=== PATIENT | female | born 1950 | race Caucasian/White ===

== ENCOUNTER 2019-06-19 09:06 | Day surgery (SDC) | payer MEDICARE, MEDICAID ==
[2019-06-18 14:41] LABS: BASOPHILS # (AUTO) 0.1 X10'3 (0-0.2); BASOPHILS % (AUTO) 0.9 % (0-1); EOSINOPHILS # (AUTO) 0.1 X10'3 (0-0.9); EOSINOPHILS % (AUTO) 1.1 % (0-6); HEMOGLOBIN 13.9 g/dl (12.0-16.0); LYMPHOCYTES # (AUTO) 1.5 X10'3 (1.1-4.8); LYMPHOCYTES % (AUTO) 25.9 % (21-51); MEAN CORPUSCULAR HEMOGLOBIN 32.3 PG (27.0-31.0); MEAN PLATELET VOLUME 6.6 FL (7.4-10.4); MONOCYTES # (AUTO) 0.4 X10'3 (0-0.9); MONOCYTES % (AUTO) 6.5 % (2-12); NEUTROPHILS # (AUTO) 3.8 X10'3 (1.8-7.7); NEUTROPHILS % (AUTO) 65.6 % (42-75); PLATELET COUNT 347 X10'3 (140-440); RED BLOOD COUNT 4.32 X10'6 (4.20-5.60); RED CELL DISTRIBUTION WIDTH 13.1 % (11.5-14.5); WHITE BLOOD COUNT 5.9 X10'3 (4.5-11.0)
[2019-06-18 14:53] LABS: ANION GAP 9 (8-16); BLOOD UREA NITROGEN 13 MG/DL (7-18); BUN/CREATININE RATIO 18.6 (6.6-38.0); CHLORIDE 100 MMOL/L (99-107); GLUCOSE 204 MG/DL (70-104); PARTIAL THROMBOPLASTIN TIME 28 SECONDS (22-32); POTASSIUM 3.8 MMOL/L (3.5-5.1); SODIUM 135 MMOL/L (135-145); TOTAL CARBON DIOXIDE 26.3 MMOL/L (24-32); eGFR 83 ML/MIN
[2019-06-19] VITALS (14 sets, daily range): BP systolic 110–163; BP diastolic 51–86
[~2019-06-19] VITALS: Ht 157.5 cm; Wt 53.8 kg
[2019-06-19] MEDS ORDERED: fentaNYL/PF 50MCG/1 ML 2ML syringe ONE (10:17)
[2019-06-19] MEDS ORDERED: midazolam 2 mg/2 ml injection ONE (10:17)
[2019-06-19] MEDS ORDERED: heparin 1,000unit/ml 10ml vial 10 ML ONE (10:17)
[2019-06-19] MEDS ORDERED: INSU100C10 SQ (10:18)
[2019-06-19] MEDS ORDERED: LANTUS SQ (10:18)
[2019-06-19] MEDS ORDERED: AMLO2.5T2 PO (10:18)
[2019-06-19] MEDS ORDERED: GRAP50CA PO (10:18)
[2019-06-19] MEDS ORDERED: iohexol 350 MG/ML 50ML vial IV ONE ×2 (10:18→12:21)
[2019-06-19] MEDS ORDERED: nitroGLYCERIN-Tridil 50MG/D5W 250 ML IV ONE (10:18)
[2019-06-19] MEDS ORDERED: LISI-600 PO (10:18)
[2019-06-19] MEDS ORDERED: ZOLP5TAB8 PO (10:18)
[2019-06-19] MEDS ORDERED: iohexol 350MG/ML 100ml bottle IV ONE ×2 (10:18→11:42)
[2019-06-19] MEDS ORDERED: LIDOcaine 1% (10mg/ml)w/preservative injection 20ml MDV ONE (10:20)
[2019-06-19] MEDS ORDERED: LORazepam 0.5 MG tablet PO PRN (10:35)
[2019-06-19] MEDS ORDERED: normal saline 1,000 ML IV SCH (10:35)
[2019-06-19] MEDS ORDERED: diphenhydrAMINE 25mg capsule PO PRN (10:35)
[2019-06-19] MEDS ORDERED: verapamil 2.5 mg/ml inj IV ONE (11:06)
[2019-06-19] MEDS ORDERED: heparin 25,000 UNIT/250ml bag 250 ML IV ONE (11:48)
[2019-06-19] MEDS ORDERED: clopidogrel 300mg tablet ONE (12:28)
[2019-06-19] MEDS ORDERED: normal saline 1000ml 1,000 ML IV ONE (13:15)
[2019-06-19] MEDS ORDERED: aspirin 81mg tab.chew PO ONE (13:20)
[2019-06-19] MEDS ORDERED: cyclobenzaprine 10mg tablet PO PRN (13:20)
[2019-06-19] MEDS ORDERED: acetaminophen 325mg tablet PO PRN ×2 (13:20)
[2019-06-19] MEDS ORDERED: magnesium hydroxide 30ml (MOM) UD suspension PO PRN (13:20)
[2019-06-19] MEDS ORDERED: clopidogrel 300mg tablet PO ONE (13:20)
[2019-06-19] MEDS ORDERED: OXAZEpam 15mg capsule PO PRN (13:20)
[2019-06-19] MEDS ORDERED: docusate sod 100mg capsule PO SCH (20:00)
[2019-06-20] MEDS ORDERED: clopidogrel 75mg tablet PO SCH (08:00)
[2019-06-20] MEDS ORDERED: aspirin 325mg tablet PO SCH (08:30)
== END 2019-06-19 21:05 | disposition home or self-care (01) ==
LOC: SSTAY O 09:06
PROVIDERS: ATTEND Internal Medicine Cardiovascular Disease
DX: I25.10 Atherosclerotic heart disease of native coronary artery without angina pectoris (principal); I10 Essential (primary) hypertension; E78.5 Hyperlipidemia, unspecified; E11.9 Type 2 diabetes mellitus without complications; M81.0 Age-related osteoporosis without current pathological fracture; G47.00 Insomnia, unspecified; M41.9 Scoliosis, unspecified; Z88.8 Allergy status to other drugs, medicaments and biological substances; Z88.5 Allergy status to narcotic agent; Z79.4 Long term (current) use of insulin; Z79.899 Other long term (current) drug therapy; Z98.890 Other specified postprocedural states
CPT/HCPCS: 36415; 80048; 82948; 85025; 85347; 85610; 85730; 93005; 93458; C1725; C1769; C1874; C9600; J1644; J2001; J2250; J3010; J7030; J7040; Q0163; Q9967; 99152; 99153; A4620; A5120; A6258; J3490

== ENCOUNTER 2019-09-21 23:47 | Emergency (ER) | payer MEDICARE, MEDICAID ==
[~2019-09-21] VITALS: Ht 157.5 cm; Wt 56.7 kg
[~2019-09-21 23:47] MED LIST: AMLO2.5T2 PO; GRAP50CA PO; INSU100C10 SQ; LANTUS SQ; LISI-600 PO; ZOLP5TAB8 PO
[2019-09-22 00:05] VITALS: BP 172/71
[2019-09-22] MEDS ORDERED: cephalexin 250mg capsule PO ONE (00:30)
[2019-09-22 00:38] LABS: CLARITY,URINE SLIGHTLY CLOUDY (Clear); COLOR,URINE YELLOW (Yellow); GLUCOSE, URINE NEGATIVE (Neg); KETONES,URINE NEGATIVE (Neg); LEUKOCYTE ESTERASE ,URINE MODERATE (Neg); NITRITES, URINE NEGATIVE (Neg); OCCULT BLOOD,URINE LARGE (Neg); PH,URINE 7.5 (4.8-8.0); PROTEIN,URINE NEGATIVE (Neg); UROBILINOGEN,URINE 0.2 E.U/dL (0.2-1.0)
[2019-09-22 00:45] LABS: UA COLLECTION TYPE CLN CATCH MIDSTREAM
[2019-09-22 00:47] LABS: RBC,URINE 50-100 /HPF (0-2); WBC,URINE 30-50 /HPF (0-4)
[2019-09-22 00:49] LABS: WBC CLUMPS,URINE MODERATE /HPF (NEGATIVE)
[2019-09-22] MEDS ORDERED: CEPH500C5 PO (00:52)
[2019-09-22 00:55] LABS: BACTERIA,URINE FEW /HPF (Neg); MUCUS STRANDS NONE SEEN /LPF (Neg); SQUAMOUS EPITHELIAL CELL,UR NONE SEEN /LPF (FEW)
[2019-09-22] MEDS ORDERED: PHEN-786 PO (01:04)
== END 2019-09-22 01:37 | disposition home or self-care (01) ==
LOC: ER 23:48
DX: N39.0 Urinary tract infection, site not specified (principal); Z79.4 Long term (current) use of insulin; E11.9 Type 2 diabetes mellitus without complications; Z88.6 Allergy status to analgesic agent; Z79.899 Other long term (current) drug therapy; Z87.440 Personal history of urinary (tract) infections
CPT/HCPCS: 81001; 87077; 87088; 87186; 99284

== ENCOUNTER 2020-02-28 17:51 | Emergency (ER) | payer MEDICARE, MEDICAID ==
[~2020-02-28] VITALS: Ht 157.5 cm; Wt 60.0 kg
[~2020-02-28 17:51] MED LIST changes: +CEPH500C5 PO; +PHEN-786 PO
[2020-02-28 18:19] LABS: CLARITY,URINE CLEAR (Clear); COLOR,URINE YELLOW (Yellow); GLUCOSE, URINE NEGATIVE (Neg); KETONES,URINE NEGATIVE (Neg); LEUKOCYTE ESTERASE ,URINE MODERATE (Neg); NITRITES, URINE POSITIVE (Neg); OCCULT BLOOD,URINE MODERATE (Neg); PH,URINE 5.5 (4.8-8.0); PROTEIN,URINE NEGATIVE (Neg); UROBILINOGEN,URINE 0.2 E.U/dL (0.2-1.0)
[2020-02-28 18:23] LABS: UA COLLECTION TYPE NON-SPECIFIED
[2020-02-28 18:25] LABS: BACTERIA,URINE 1+ /HPF (Neg); MUCUS STRANDS NONE SEEN /LPF (Neg); RBC,URINE 0-2 /HPF (0-2); SQUAMOUS EPITHELIAL CELL,UR FEW /LPF (FEW); WBC,URINE 20-30 /HPF (0-4)
[2020-02-28 18:36] VITALS: BP 152/75
[2020-02-28] MEDS ORDERED: sulfamethoxazole/trimethoprim DS (800/160mg) tablet PO ONE (18:40)
[2020-02-28] MEDS ORDERED: BACDS PO (18:41)
== END 2020-02-28 18:57 | disposition home or self-care (01) ==
LOC: ER 17:52
DX: N39.0 Urinary tract infection, site not specified (principal); R30.9 Painful micturition, unspecified; E11.9 Type 2 diabetes mellitus without complications; Z87.440 Personal history of urinary (tract) infections; Z88.6 Allergy status to analgesic agent; Z88.8 Allergy status to other drugs, medicaments and biological substances; Z79.4 Long term (current) use of insulin; Z79.2 Long term (current) use of antibiotics; Z79.899 Other long term (current) drug therapy
CPT/HCPCS: 81001; 87077; 87088; 87186; 99283